=== PATIENT | male | born 1980 | race Asian ===

== ENCOUNTER 2020-12-18 02:00 | Emergency (ER) | payer OTHER ==
[~2020-12-18] VITALS: Ht 195.6 cm; Wt 86.2 kg
[2020-12-18 03:25] VITALS: BP 126/84; TEMP 98.1
== END 2020-12-18 03:25 ==
LOC: ED 02:00
PROC: 0HQ1XZZ Repair Face Skin, External Approach (ICD-10-PCS; principal; 2020-12-18)
DX: S01.81XA Laceration without foreign body of other part of head, initial encounter (principal); V49.3XXA Car occupant (driver) (passenger) injured in unspecified nontraffic accident, initial encounter; Y92.89 Other specified places as the place of occurrence of the external cause
CPT/HCPCS: 99283